=== PATIENT | male | born 1970 | race Caucasian/White ===

== ENCOUNTER 2021-03-22 12:44 | Outpatient (REF) | payer OTHER, SELFPAY ==
--- NOTE | ~2021-03-22 | XR_ITS ---
EXAMINATION: 1. RADIOGRAPHS RIGHT KNEE 2. RADIOGRAPHS LEFT KNEE CLINICAL INFORMATION: Bilateral knee pain COMPARISON: None TECHNIQUE: 4 views of each knee were obtained. FINDINGS: Right knee: No fracture or dislocation. No suprapatellar joint effusion. Minimally decreased medial joint space height. Tiny tricompartmental marginal osteophytes. No focal soft tissue swelling of the anterior knee. Left knee: No fracture or dislocation. Mild to moderately decreased medial joint space height. Small no suprapatellar joint effusion. Tiny tricompartmental marginal osteophytes. No focal soft tissue swelling of the anterior knee. XR/XR knee RT 4V IMPRESSION: Mild degenerative changes of both knees, left slightly worse than right.
--- NOTE | ~2021-03-22 | XR_ITS ---
EXAMINATION: 1. RADIOGRAPHS RIGHT KNEE 2. RADIOGRAPHS LEFT KNEE CLINICAL INFORMATION: Bilateral knee pain COMPARISON: None TECHNIQUE: 4 views of each knee were obtained. FINDINGS: Right knee: No fracture or dislocation. No suprapatellar joint effusion. Minimally decreased medial joint space height. Tiny tricompartmental marginal osteophytes. No focal soft tissue swelling of the anterior knee. Left knee: No fracture or dislocation. Mild to moderately decreased medial joint space height. Small no suprapatellar joint effusion. Tiny tricompartmental marginal osteophytes. No focal soft tissue swelling of the anterior knee. XR/XR knee LT 4V IMPRESSION: Mild degenerative changes of both knees, left slightly worse than right.
== END 2021-03-22 12:45 | disposition home or self-care (01) ==
LOC: HO.XRAY 12:44
PROVIDERS: PCP Family Medicine; Visit Provider Family Medicine
DX: M25.561 Pain in right knee (principal); M25.562 Pain in left knee
CPT/HCPCS: 73564

== ENCOUNTER 2021-04-01 11:52 | Outpatient (REF) | payer OTHER, SELFPAY ==
--- NOTE | ~2021-04-01 | XR_ITS ---
EXAMINATION: XR CERVICAL SPINE XR LUMBAR SPINE CLINICAL INFORMATION: Cervical spondylarthritis. Low back pain. COMPARISON: None TECHNIQUE: Three-view lumbar spine and three-view cervical spine. FINDINGS: 3 views of the cervical spine do not demonstrate any abnormal prevertebral soft tissue swelling. No acute fracture is identified. On lateral view C7 is not included. There is some mild narrowing at the C4-C5, C5-C6, and C6-C7 levels. 3 views of the lumbar spine do not demonstrate any evidence of acute fracture, spondylolisthesis, or spondylolysis. Spina bifida occulta is seen at S1. There is a posterior spur inferior aspect of L4. There is mild anterior spurring seen L4 through S1. There is mild narrowing of the L5-S1 disc space. There is facet arthropathy noted at the L5-S1 level bilaterally, left greater than right. No significant sacroiliac joint abnormality appreciated. There is spurring noted about the lower thoracic spine. XR/XR lumbar spine 2-3V IMPRESSION: Cervical and lumbar spondylosis as described. Lateral cervical spine view does not include C7.
--- NOTE | ~2021-04-01 | XR_ITS ---
EXAMINATION: XR CERVICAL SPINE XR LUMBAR SPINE CLINICAL INFORMATION: Cervical spondylarthritis. Low back pain. COMPARISON: None TECHNIQUE: Three-view lumbar spine and three-view cervical spine. FINDINGS: 3 views of the cervical spine do not demonstrate any abnormal prevertebral soft tissue swelling. No acute fracture is identified. On lateral view C7 is not included. There is some mild narrowing at the C4-C5, C5-C6, and C6-C7 levels. 3 views of the lumbar spine do not demonstrate any evidence of acute fracture, spondylolisthesis, or spondylolysis. Spina bifida occulta is seen at S1. There is a posterior spur inferior aspect of L4. There is mild anterior spurring seen L4 through S1. There is mild narrowing of the L5-S1 disc space. There is facet arthropathy noted at the L5-S1 level bilaterally, left greater than right. No significant sacroiliac joint abnormality appreciated. There is spurring noted about the lower thoracic spine. XR/XR cervical spine 3V IMPRESSION: Cervical and lumbar spondylosis as described. Lateral cervical spine view does not include C7.
[2021-04-01 13:44] LABS: Thyroid Stimulating Hormone 2.45 uIU/mL (0.32-4.0)
[2021-04-01 13:50] LABS: Erythrocyte Sedimentation Rate 2 MM/HR (0-15)
[2021-04-02 20:42] LABS: Lyme Abs Screen <0.90 index
[2021-04-05 14:16] LABS: Anti Nuclear Antibody Pattern Nuclear, Speckled; Anti Nuclear Antibody Screen POSITIVE (NEGATIVE); Anti Nuclear Antibody Titer 1:40 titer
[2021-04-06 17:17] LABS: Aldolase 6.1 U/L (<=8.1)
== END 2021-04-01 11:53 | disposition home or self-care (01) ==
LOC: HO.XRAY 11:52
PROVIDERS: PCP Family Medicine; Visit Provider Psychiatry & Neurology Neurology
DX: M51.26 Other intervertebral disc displacement, lumbar region (principal); M79.10 Myalgia, unspecified site; M47.812 Spondylosis without myelopathy or radiculopathy, cervical region
CPT/HCPCS: 36415; 72040; 72100; 82085; 82550; 84436; 84443; 85652; 86038; 86039; 86617; 86618

== ENCOUNTER 2021-05-06 09:28 | Outpatient (REF) | payer OTHER, SELFPAY | END 2021-05-06 09:29 | disposition home or self-care (01) | LOC: HO.NEURO 09:28 | PROVIDERS: Visit Provider Family Medicine | DX: Z13.89 Encounter for screening for other disorder (principal) ==

== ENCOUNTER 2021-07-12 08:54 | Day surgery (SDC) | payer OTHER, SELFPAY ==
[2021-07-06 14:51] VITALS: BMI 34.8
[2021-07-12 08:56] VITALS: BP 126/89; PULSE 77; RESP 17; TEMP 36.6; O2SAT 96
--- NOTE | 2021-07-12 10:05 | HO.ANESPROP2 ---
[facility] Past Medical History Medical History GERD (gastroesophageal reflux disease) Functional capacity: independent ambulation Family History Family history of problems with anesthesia: No Surgical History Surgical History History of right inguinal hernia repair Hx of colonoscopy Hx of left knee surgery History of Problems with Anesthesia: No Social History Social History Patient Tobacco Use Status: Never used Tobacco Use of substances other than those prescribed or required for medical reasons: No Are you DNR?: No Advance Directives: No Advance Directives Information Provided: Yes Meds Allergies Allergy/AdvReac Type Severity Reaction Status Date / Time No Known Allergies Allergy Verified 07/06/21 14:50 Active Medications: Current Medications Sodium Biphosphate/Sodium Phosphate (Sodium Phosphate,[place]-Dibasic 133 Ml Enema) 133 ml [place] ONCE PRN PRN Reason: Poor Colonoscopy Prep Results Home Medications Medication Instructions Recorded Confirmed Last Taken Type famotidine 20 mg tablet 1 tab PO BEDTIME PRN 07/06/21 07/06/21 Unknown History Exam Exam Date and Time: July 12, 2021 1005 Height,Weight and Vital Signs: Height 5 ft 8 in Weight 103.873 kg Last Vital Signs Temp 98 F 07/12/21 08:56 Pulse 77 07/12/21 08:56 Resp 17 07/12/21 08:56 BP 126/89 07/12/21 08:56 Pulse Ox 96 07/12/21 08:56 Airway Mallampati Class: II TM Dist: >3cm Denture: Upper Heart: RRR Lungs: CTA Assessment and Plan Final Anesthetic Review Family History of Problems with Anesthesia: No History of Problems with Anesthesia: No ASA Class: II Final Preanesthetic Review: No Changes in Pt Med Stat, Meds/Allgs Chart Reviewed, Consent Obtained/Reviewed and Anes Risks/Benef Reviewed Patient Risk: Low Procedure Risk: Low Anesthetic Plan Anesthetic Plan: MAC: Disposition: Standard PACU
--- NOTE | 2021-07-12 10:55 | HO.ANESPROP2 ---
[facility] Past Medical History Medical History GERD (gastroesophageal reflux disease) Functional capacity: independent ambulation Family History Family history of problems with anesthesia: No Surgical History Surgical History History of right inguinal hernia repair Hx of colonoscopy Hx of left knee surgery History of Problems with Anesthesia: No Social History Social History Patient Tobacco Use Status: Never used Tobacco Use of substances other than those prescribed or required for medical reasons: No Are you DNR?: No Advance Directives: No Advance Directives Information Provided: Yes Meds Allergies Allergy/AdvReac Type Severity Reaction Status Date / Time No Known Allergies Allergy Verified 07/06/21 14:50 Active Medications: Current Medications Sodium Biphosphate/Sodium Phosphate (Sodium Phosphate,[place]-Dibasic 133 Ml Enema) 133 ml [place] ONCE PRN PRN Reason: Poor Colonoscopy Prep Results Home Medications Medication Instructions Recorded Confirmed Last Taken Type famotidine 20 mg tablet 1 tab PO BEDTIME PRN 07/06/21 07/06/21 Unknown History Exam Exam Date and Time: July 12, 2021 1055 Height,Weight and Vital Signs: Height 5 ft 8 in Weight 103.873 kg Last Vital Signs Temp 98 F 07/12/21 08:56 Pulse 77 07/12/21 08:56 Resp 17 07/12/21 08:56 BP 126/89 07/12/21 08:56 Pulse Ox 96 07/12/21 08:56 Assessment and Plan Final Anesthetic Review Family History of Problems with Anesthesia: No History of Problems with Anesthesia: No
[2021-07-12 11:38] VITALS: BP 100/45; PULSE 68; RESP 19; TEMP 36.3; O2SAT 94
--- NOTE | 2021-07-12 11:39 | P.BOP_ITS ---
Brief Operative Note Date of Service: 07/12/21 Pre-op diagnosis: GERD, Dysphagia, Screening Post-op diagnosis: other (Reflux esophagitis, Duodenal ulcer, Hiatal hernia, Diverticulosis) Procedure: EGD with biopsies, Colonoscopy to the cecum and TI Surgeon: Yony Miranda Anesthesia: MAC Was an Chemical Radiation Technician used for this Procedure?: No Estimated blood loss (mL): 2.0 Pathology: other (A. Gastric antrum B. EG Junction at 35cm) Condition: stable Disposition: PACU
[2021-07-12 11:42] VITALS: BP 113/66; PULSE 68; RESP 18; O2SAT 94
[2021-07-12 11:53] VITALS: BP 122/84; PULSE 64; RESP 16; TEMP 36.3; O2SAT 98
[2021-07-12 12:14] VITALS: BP 128/79; PULSE 56; RESP 16; O2SAT 96
--- NOTE | 2021-07-12 12:21 | HO.POSTANES ---
Post Anesthesia Evaluation Post Anesthesia Evaluation Vital Signs: Vital Signs Temp Pulse Resp BP Pulse Ox 07/12/21 12:14 56 16 128/79 96 07/12/21 11:53 97.3 F 64 16 122/84 98 07/12/21 11:42 68 18 113/66 94 07/12/21 11:38 97.3 F 68 19 100/45 L 94 07/12/21 08:56 98 F 77 17 126/89 96 Anesthesia: Monitored Mental Status: Awake Pain Control: Satisfactory Nausea/Vomiting: None Hydration: Adequate Anesthesia-Related Issues: No Anes. Related Issues
--- NOTE | 2021-07-12 12:24 | OP_ITS ---
SURGEON: Yony Miranda MD INDICATIONS: The patient presents for evaluation of colorectal cancer screening, gastroesophageal reflux, and dysphagia. Full consent has been obtained from him for both procedures, including risks of bleeding and perforation. PREOPERATIVE DIAGNOSIS: POSTOPERATIVE DIAGNOSIS: Colorectal cancer screening, gastroesophageal reflux, dysphagia, mild diverticulosis, small internal hemorrhoids, reflux esophagitis, duodenal bulb ulcer, hiatal hernia. PROCEDURE PERFORMED: Colonoscopy to the cecum and terminal ileum, and esophagogastroduodenoscopy with biopsies. ESTIMATED BLOOD LOSS: COMPLICATIONS: ANESTHESIA: Monitored anesthesia care. ASSISTANTS: SPECIMENS: PREOPERATIVE DIAGNOSES: Colorectal cancer screening, gastroesophageal reflux, dysphagia. DESCRIPTION OF PROCEDURE: The patient was placed in the left lateral decubitus position. The digital rectal exam revealed no abnormalities. The Olympus video pediatric colonoscope was entered into the rectum and advanced easily to the cecum. Once in the cecum, I did identify normal-appearing cecal pouch with appendiceal orifice and a normal-appearing ileocecal valve. The terminal ileum was cannulated and appeared normal. Scope withdrawn back into the colon. The entire cecum and ileocecal valve appeared normal. The scope was slowly withdrawn assessing all mucosal surfaces carefully. Preparation was excellent. I did not visualize any sign of polyps, colitis, nor angiodysplasia. There was a mild amount of sigmoid diverticulosis. In the rectum, scope was retroflexed visualizing small internal hemorrhoids, but no other pathology. The rectal mucosa appeared normal. The scope was straightened and withdrawn from the patient. He was turned around for the upper endoscopy. The Olympus video gastroscope was passed in the posterior oropharynx and upper esophagus under direct vision. The scope was passed slowly to the distal esophagus. The gastroesophageal junction appeared at 35 cm. This area was notable for some edema, erythema, friability, and changes consistent with reflux. There was no evidence of any ulceration nor any definitive evidence of Jeff's mucosa. The scope entered into the stomach. There was a small hiatal hernia. The scope was advanced to pylorus and the duodenum was cannulated to the descending portion. The duodenum including the bulb was carefully inspected. In the distal part of the duodenal bulb, on the posterior wall, was an approximately 6 mm ulcer with a clean base and no bleeding. The remainder of the duodenal bulb appeared normal. Scope was withdrawn back to the stomach. The gastric antrum and body appeared normal with good peristalsis. The scope was retroflexed visualizing the proximal stomach carefully, which appeared normal, without any sign of mass or ulceration. The scope was straightened. Biopsies were obtained from the gastric antrum. The scope was withdrawn back into the esophagus. Biopsies were obtained at the EG junction at 35 cm. There was no evidence of any esophageal stricture nor ring, and therefore dilation was not done. The esophageal mucosa proximal to the EG junction appeared normal. The scope was withdrawn from the patient. He tolerated both procedures well and was returned to the recovery area in stable condition. IMPRESSION: 1. Reflux esophagitis. 2. Hiatal hernia. 3. Duodenal ulcer. 4. Diverticulosis. 5. Internal hemorrhoids. PLAN: The results of biopsies will be checked. Given these findings, I shall switch him to omeprazole 20 mg daily rather than his famotidine. I suspect his intermittent dysphagia has been related to his reflux and some esophageal spasm. He was advised to stay off all aspirin and NSAIDs long-term. I would recommend a repeat colonoscopy in 10 years. He will be seen in the office later this year for followup. If Helicobacter pylori is present in the gastric biopsies, I would recommend treating that as well given the duodenal ulcer. MD CHAPIN Prado/ROYAL / [id number]
== END 2021-07-12 12:35 | disposition home or self-care (01) ==
PROVIDERS: PCP Family Medicine; Visit Provider Internal Medicine
PROC: 0DJD8ZZ Inspection of Lower Intestinal Tract, Via Natural or Artificial Opening Endoscopic (ICD-10-PCS; CPT 45378; principal; 2021-07-12 10:00)
PROC: (CPT 45378; 2021-07-12 10:00)
DX: Z12.11 Encounter for screening for malignant neoplasm of colon (principal); K57.30 Diverticulosis of large intestine without perforation or abscess without bleeding; K64.8 Other hemorrhoids; R13.19 Other dysphagia; K21.00 Gastro-esophageal reflux disease with esophagitis, without bleeding; K26.9 Duodenal ulcer, unspecified as acute or chronic, without hemorrhage or perforation; K44.9 Diaphragmatic hernia without obstruction or gangrene; Z79.899 Other long term (current) drug therapy
CPT/HCPCS: 45378; 43239; 88305; 88313; 88342